=== PATIENT | female | born 1955 ===

== ENCOUNTER 2017-12-10 21:39 | Emergency (ER) | payer SELFPAY ==
[~2017-12-10] VITALS: Ht 154.9 cm; Wt 48.5 kg
--- NOTE | 2017-12-10 22:39 | ED HAND/WRIST INJURY COMPLAINT ---
History of Present Illness General Chief Complaint: Laceration Procedure Stated Complaint: L RING FINGER LAC Source: patient Exam Limitations: no limitations Vital Signs & Intake/Output Vital Signs & Intake/Output Vital Signs Date Time Temp Pulse Resp B/P B/P Pulse O2 O2 Flow FiO2 Mean Ox Delivery Rate 12/109 98.2 78 20 195/92 97 Room Air 12/10 2208 97 Room Air 12/108 98.5 87 18 168/82 98 Room Air ED Intake and Output 12/11 0000 12/10 1200 Intake Total Output Total Balance Patient 107 lb Weight Weight Reported by Patient Measurement Method Allergies Uncoded Allergies: SEAFOOD ( 12/10/17) Triage Note: TRIAGE: PATINET TO ER FROM HOME REPORTING L RING FINGER LAC WHILE MAKING DINNER, REPORTS IS UTD W/ TETNAUS. OCCURED APPROX 3PM TODAY, INTERMITTENT BLEEDING SINCE. DENIES BLOODTHINNERS. PRESSURE BEING APPLIED IN TRIAGE. Triage Nurses Notes Reviewed? yes Occurred: this afternoon Duration: hour(s): Timing: single episode today Injury Environment: home Severity: moderate Pain/Injury Location: Left: 4th finger. Context: laceration Method of Injury: laceration HPI: 62yo female presents to ED complaining of laceration to left ring finger at home around 3 PM today. Patient states that she was cutting zucchini with [employer]elen cutter and accidentally sliced the distal left ring finger. Patient bandaged area at home not going to come in however bleeding persisted so he reported here to the emergency department. Patient states that she has had tetanus vaccine within the past 10 years. She denies numbness, tingling. Past History Travel History Traveled to [place] past 21 day No Medical History Any Pertinent Medical History? see below for history Neurological: NONE EENT: NONE Cardiovascular: NONE Respiratory: NONE Gastrointestinal: NONE Hepatic: NONE Renal: NONE Musculoskeletal: NONE Psychiatric: NONE Endocrine: NONE Blood Disorders: NONE Cancer(s): breast cancer HEALTH SANITARIAN/Reproductive: NONE Surgical History Surgical History: non-contributory Psychosocial History What is your primary language Romansh Tobacco Use: Never used Family History Hx Contributory? No Review of Systems Review of Systems Constitutional: Reports: no symptoms. EENTM: Reports: no symptoms. Respiratory: Reports: no symptoms. Cardiovascular: Reports: no symptoms. GI: Reports: no symptoms. Genitourinary: Reports: no symptoms. Musculoskeletal: Reports: no symptoms. Skin: Reports: see HPI. Neurological/Psychological: Reports: no symptoms. Hematologic/Endocrine: Reports: no symptoms. Immunologic/Allergic: Reports: no symptoms. All Other Systems: Reviewed and Negative Physical Exam Physical Exam General Appearance: well developed/nourished, no apparent distress, alert, awake Head: atraumatic, normal appearance Eyes: Bilateral: normal appearance. Ears, Nose, Throat: hearing grossly normal Neck: normal inspection, supple, full range of motion Cardiovascular/Respiratory: no respiratory distress Back: normal inspection, normal range of motion Wrist Left: normal range of motion, normal inspection Wrist Right: normal range of motion, normal inspection Hand Left: normal range of motion, 0.5x0.5cm skin avulsion to distal L 4th digit , ROM intact, active moderate bleeding Hand Right: normal inspection, normal range of motion Neurologic/Tendon: normal sensation, normal motor functions, normal tendon functions Skin: see skin avulsion above Progress Differential Diagnosis: fracture, sprain, laceration, skin avulsion Plan of Care: Skin avulsion closed using Dermabond, bleeding stopped here in the emergency department following application of Dermabond. Patient educated on signs and symptoms of infection. She was educated on wound care with skin glue. She will return if she has any worsening symptoms or other concerns. The patient tolerated procedure well. She agrees with the plan of care. Departure Departure Disposition: HOME OR SELF CARE Condition: Stable Clinical Impression Primary Impression: Skin avulsion Additional Instructions: Keep skin glue dry for 3 days. After 3 days YOU may soak area in warm water. Once skin glue has dissolved you may begin applying bacitracin and Band-Aid topically. If you develop any symptoms of infection such as redness, swelling, increasing pain, cloudy drainage from wound please return for reevaluation and possible antibiotics. Otherwise follow-up with her primary care doctor. Please note that there might be incidental findings in your evaluation that are unrelated to the current emergency department visit. Please notify your primary care doctor about this emergency department visit in order to obtain and review all of the testing performed so that these incidental findings can be monitored as needed. If you had an x-ray performed, please understand that some fractures may not be seen on the initial set of x-rays. If your symptoms persist you might need a repeat set of x-rays to check for such a fracture. If you had a laceration evaluated, please understand that foreign bodies such as glass or wood may not be visible to the naked eye or on plain x-rays. If the wound becomes red, swollen, increasingly more painful or if there is any drainage from the wound, please have it reevaluated by a physician for the possibility of a retained foreign body. If you're unable to follow up as outlined in the discharge instructions please return to the emergency department. Thank you for choosing the [facility] for your care. It was a pleasure to serve you today. Departure Forms: Customer Survey General Discharge Information Procedures Laceration/Wound Repair Laceration/Wound Repair: Wound Location: finger Wound's Depth, Shape: skin avulsion Wound Length (cm): 0.5 Wound Explored: clean Betadine Prep? Yes Anesthesia: none Wound Repaired With: Dermabond Tetanus Status: up to date Progress: Patient tolerated procedure well.
[2017-12-10 22:49] VITALS: BP 195/92
== END 2017-12-10 22:54 ==
LOC: ERH 21:39
DX: S61.215A Laceration without foreign body of left ring finger without damage to nail, initial encounter (principal); W26.0XXA Contact with knife, initial encounter; Y92.090 Kitchen in other non-institutional residence as the place of occurrence of the external cause
CPT/HCPCS: 99281